=== PATIENT | male | born 1985 | race Two or more races ===

== ENCOUNTER 2018-02-13 19:58 | Emergency (ER) | payer SELFPAY ==
[~2018-02-13] VITALS: Ht 188 cm; Wt 108.0 kg
[~2018-02-13 19:58] MED LIST: CLIN1CAP5 PO; MEDR4PAK3 PO; MMW SSP
[2018-02-13 20:39] VITALS: BP 143/76; PULSE 86; RESP 18; TEMP 98.3; O2SAT 96
[2018-02-13] MEDS ORDERED: BENZ100 PO (21:21)
[2018-02-13] MEDS ORDERED: PRED20 PO (21:21)
[2018-02-13] MEDS ORDERED: AMOX875T PO (21:21)
--- NOTE | 2018-02-13 21:28 | PD ---
HPI Chief Complaint: Cold / Flu Symptoms Time Seen by Provider: 21:11 Travel History International Travel<30 days: No Contact w/Intl Traveler<30days: No Traveled to known affect area: No History of Present Illness HPI 32-year-old male presents to the ED for evaluation of cold-like symptoms and right ear pain. Per patient has had this since last week. Per patient he continues to be problematic for him. Per patient has been taking some over-the- counter remedies as well as azithromycin that was given to him by his mother. Per patient this has not helped. Patient continues to have the pain and congestion. Cough. No allergies to medication. No other medical issues. Has not seen anybody for this. No recent travel. Per patient he started with a sore throat as well as fever but that has gone away now. PFSH Past Medical History Medical History: Denies Significant Hx Cardiovascular Problems: Yes (HEART MURMUR) Diminished Hearing: No Immunizations Current: Yes Tetanus Vaccination: > 5 Years Influenza Vaccination: No Past Surgical History Surgical History: No Previous Surgery Social History Alcohol Use: Yes (RARE) Tobacco Use: No Substance Use: No Allergies-Medications (Allergen,Severity, Reaction): Coded Allergies: No Known Allergies (Verified Adverse Reaction, Unknown, 02/13/18) Reported Meds & Prescriptions Reported Meds & Active Scripts Active Tessalon Perles (Benzonatate) 100 Mg Cap 200 Mg PO TID PRN Prednisone 20 Mg Tab 20 Mg PO BID 5 Days Amoxicillin 875 Mg Tab 875 Mg PO BID 10 Days Review of Systems Except as stated in HPI: all other systems reviewed are Neg Physical Exam Narrative GENERAL: Well-nourished, well-developed patient in no apparent distress. SKIN: Warm and dry. HEAD: Atraumatic. Normocephalic. EYES: Pupils equal and round reactive to light and accommodation. No scleral icterus. No injection or drainage. ENT: No nasal bleeding or discharge. Mucous membranes pink and moist. Right TM is a little red and bulging. No signs of perforation. Left TM is intact. No mastoid tenderness. Ear canals are intact bilaterally. No lymphadenopathy. Nostril mucosa is red and moist with clear mucus noted. No sinus tenderness to palpation noted. Tonsils are not enlarged or swollen. No ulvua Deviation. Tongue is midline. NECK: Trachea midline. No JVD. No meningeal signs noted CARDIOVASCULAR: Regular rate and rhythm. RESPIRATORY: No accessory muscle use. Clear to auscultation. Breath sounds equal bilaterally. GASTROINTESTINAL: Abdomen soft, non-tender, nondistended. Hepatic and splenic margins not palpable. MUSCULOSKELETAL: Extremities without clubbing, cyanosis, or edema. No obvious deformities. NEUROLOGICAL: Awake and alert. No obvious cranial nerve deficits. Motor grossly within normal limits. Five out of 5 muscle strength in the arms and legs. Normal speech. PSYCHIATRIC: Appropriate mood and affect; insight and judgment normal. Data Data Last Documented VS Vital Signs Date Time Temp Pulse Resp B/P (MAP) Pulse Ox O2 Delivery O2 Flow Rate FiO2 02/13/18 21:15 (98) 02/13/18 21:13 Room Air 02/13/18 20:39 98.3 86 18 96 Orders Orders Ed Discharge Order (02/13/18 21:25) [facility] Medical Decision Making Medical Screen Exam Complete: Yes Emergency Medical Condition: Yes Medical Record Reviewed: Yes Differential Diagnosis Otitis media with otitis externa versus pharyngitis versus sinusitis versus URI Narrative Course 32-year-old male presents to the ED for evaluation of cold-like symptoms and ear pain. Patient was properly examined and was found to have signs and symptoms consistent with appears to be otitis media. Patient will be treated with amoxicillin, prednisone, Tessalon Perles. Take OTC meds as needed. Follow -up with PCP. See ED if worsening symptoms. Diagnosis Primary Impression: Otitis media Qualified Codes: H66.001 - Acute suppurative otitis media without spontaneous rupture of ear drum, right ear Patient Instructions: General Instructions Additional Instructions: Motrin and Tylenol for pain and fever. You can use [id number] antihistamine as well as well as Mucinex as needed for runny nose and congestion. Cough drops for cough as needed. Drink plenty of fluids. Follow-up with PCP. See ED for worsening symptoms. Med/Other Pt SpecificInfo: Prescription(s) given Scripts Benzonatate (Tessalon Perles) 100 Mg Cap 200 MG PO TID Y for COUGH, #15 CAP 0 Refills Prov: Fredy Gunter MD 02/13/18 Prednisone (Prednisone) 20 Mg Tab 20 MG PO BID for 5 Days, #10 TAB 0 Refills Prov: Fredy Gunter MD 02/13/18 Amoxicillin (Amoxicillin) 875 Mg Tab 875 MG PO BID for Infection for 10 Days, #20 TAB 0 Refills Prov: Fredy Gunter MD 02/13/18 Disposition: 01 DISCHARGE HOME Condition: Augustine Garcia Feb 13, 2018 21:28
== END 2018-02-13 21:38 | disposition home or self-care (01) ==
LOC: PHED 19:58 → PHEFT 21:38
DX: H66.91 Otitis media, unspecified, right ear (principal); J02.9 Acute pharyngitis, unspecified; R09.81 Nasal congestion; R05 Cough; R01.1 Cardiac murmur, unspecified
CPT/HCPCS: 99283